=== PATIENT | male | born 1995 ===

== ENCOUNTER 2018-01-09 16:08 | Emergency (ER) | payer BC ==
[2018-01-09 16:33] VITALS: BP 118/62; PULSE 68; RESP 18; TEMP 97.5; O2SAT 99
--- NOTE | 2018-01-09 17:37 | ED PDOC ---
HPI: Trauma/Fall - HPI Time Seen by Provider: 01/09/18 17:33 Chief Complaint (Nursing): Rib Injury Chief Complaint (Provider): Rib Injury History Per: Patient History/Exam Limitations: no limitations Onset/Duration Of Symptoms: Days (x1 week) Additional Complaint(s): 22 year old male presents to the emergency department complaining of right rib pain after falling down stairs onto the arm of a couch one week ago. Since pain did not improve, patient came in today seeking an x-ray. Currently denies any numbness or tingling, and ecchymosis. PMD: none provided Past Medical History Reviewed: Historical Data, Nursing Documentation, Vital Signs Vital Signs: Last Vital Signs Temp 97.5 F L 01/09/18 16:30 Pulse 68 01/09/18 16:30 Resp 18 01/09/18 16:30 BP 118/62 01/09/18 16:30 Pulse Ox 99 01/09/18 16:30 - Medical History PMH: No Chronic Diseases - Surgical History Surgical History: No Surg Hx - Family History Family History: States: Unknown Family Hx - Social History Current smoker - smoking cessation education provided: Yes (light) Alcohol: Social Drugs: Denies, Other - Allergies Allergies/Adverse Reactions: Allergies Allergy/AdvReac Type Severity Reaction Status Date / Time No Known Allergies Allergy Verified 01/09/18 17:34 Review of Systems ROS Statement: Except As Marked, All Systems Reviewed And Found Negative Musculoskeletal: Positive for: Other (right rib pain; no ecchymosis) Neurological: Negative for: Weakness (or tingling) Physical Exam - Reviewed Nursing Documentation Reviewed: Yes Vital Signs Reviewed: Yes - Physical Exam Appears: Positive for: Well, Non-toxic, No Acute Distress Head Exam: Positive for: ATRAUMATIC, NORMOCEPHALIC Skin: Positive for: Normal Color, Warm, Dry Eye Exam: Positive for: Normal appearance Cardiovascular/Chest: Positive for: Regular Rate, Rhythm. Negative for: Chest Non Tender (tenderness to palpation of right ribs 9,10,11,12; no ecchymosis), Murmur Respiratory: Positive for: Normal Breath Sounds. Negative for: Accessory Muscle Use, Rales, Rhonchi, Wheezing, Respiratory Distress Extremity: Positive for: Normal ROM Neurologic/Psych: Positive for: Alert, Oriented (x3). Negative for: Motor/ Sensory Deficits - ECG O2 Sat by Pulse Oximetry: 99 (RA) Pulse Ox Interpretation: Normal - Radiology X-Ray: Interpreted by Me, Viewed By Me X-Ray Interpretation: Other (no noted fracture) Medical Decision Making Medical Decision Making: Time: 17:35 Initial Impression: right rib tenderness Initial Plan: --Right Ribs XR --Motrin 600mg --Tylenol 650mg PO Scribe Attestation: Documented by Jackie Brown, acting as a scribe for Abhilash Kaufman PA-C. Provider Scribe Attestation: All medical record entries made by the Scribe were at my direction and personally dictated by me. I have reviewed the chart and agree that the record accurately reflects my personal performance of the history, physical exam, medical decision making, and the department course for this patient. I have also personally directed, reviewed, and agree with the discharge instructions and disposition. Disposition - Clinical Impression Clinical Impression: Rib contusion - Patient ED Disposition Is Patient to be Admitted: No Doctor Will See Patient In The: Office Counseled Patient/Family Regarding: Studies Performed, Diagnosis - Disposition Disposition: Routine/Home Disposition Time: 18:26 Condition: STABLE Instructions: Bruised Rib (DC), Contusion (DC) Forms: [employer] ([place])
--- NOTE | 2018-01-09 19:35 | RAD ---
PROCEDURE: Radiographs of the Chest and Right Ribs. HISTORY: r/o fx COMPARISON: None available. TECHNIQUE: Frontal radiograph of the chest and multiple oblique radiographs of the right ribs were obtained. FINDINGS: RIGHT RIBS: No fracture or focal lesion visualized. LUNGS: Clear. PLEURA: No pneumothorax or pleural fluid. CARDIOVASCULAR: Normal sized heart. No pulmonary vascular congestion. OTHER FINDINGS: None. IMPRESSION: Unremarkable radiographs of the chest and right ribs. No right rib fracture.
== END 2018-01-09 18:40 | disposition home or self-care (01) ==
LOC: H.ER 16:08
DX: S20.219A Contusion of unspecified front wall of thorax, initial encounter (principal); W10.9XXA Fall (on) (from) unspecified stairs and steps, initial encounter; Y92.89 Other specified places as the place of occurrence of the external cause